=== PATIENT | female | born 1995 | race Caucasian/White ===

== ENCOUNTER 2016-08-03 17:51 | Emergency (ER) | payer OTHER ==
[2016-08-03 17:59] VITALS: TEMP 98.4
[2016-08-03] MEDS ORDERED: TDAP ADULT 0.5 ML INJ (BOOSTRIX) IM ONE ×2 (19:12→20:33)
--- NOTE | 2016-08-03 20:41 | EDPHY ---
H & P Stated Complaint: laceration to R thump on glass at work. HPI/ROS: Chief complaint: Right thumb laceration History of present illness: This is a 20-year-old female who presents to the emergency department for a right thumb laceration. Patient was at work and went to pick something up off the ground and did not see broken glass on the ground which cut her thumb. There is been pain at the site of the laceration. Bleeding which has been controlled with a dressing. She denies paresthesias or abnormal coolness in the thumb. She states she can move it normally. No other injuries reported. Her tetanus is up-to-date. - Personal History LMP (Females 10-55): 1-7 Days Ago Current Tetanus/Diphtheria Vaccine: Unsure Current Tetanus Diphtheria and Acellular Pertussis (TDAP): Unsure - Medical/Surgical History Hx Asthma: No Hx Chronic Respiratory Disease: No Hx Diabetes: No Hx Cardiac Disease: No Hx Renal Disease: No Hx Cirrhosis: No Hx Alcoholism: No Hx HIV/AIDS: No Hx Splenectomy or Spleen Trauma: No Other PMH: PMH- anxiety, depression - Social History Smoking Status: Never smoked - Physical Exam Exam: General: Alert, nontoxic Skin: 1 cm avulsion of the skin to the pad of the thumb. Musculoskeletal: Patient can flex and extend the thumb in the PIP joint and moving it in all sierra of the MCP joint without difficulty. Vascular: Capillary refill brisk in the thumb. Radial pulses 2+. Neurologic: Sensation intact using light touch and two-point discrimination Constitutional: Initial Vital Signs Temperature (C) 36.9 C 08/03/16 17:56 Heart Rate 93 08/03/16 17:56 Respiratory Rate 18 08/03/16 17:56 Blood Pressure 108/71 08/03/16 17:56 O2 Sat (%) 96 08/03/16 17:56 O2 Delivery Mode Room Air Allergies/Adverse Reactions: No Known Allergies Allergy (Verified 08/03/16 17:59) Home Medications: Medication Instructions Recorded Zoloft 25mg (RX) 07/03/15 Medical Decision Making - Diagnostics Imaging: X-ray of the thumb shows some radiopaque foreign bodies. Procedures: Procedure: Laceration repair. Verbal consent was obtained from the patient. The 1 cm avulsion on the pad of the thumb was anesthetized in the usual fashion. The wound was irrigated, draped and explored to its base with a gloved finger. There were no deep structures involved. No tendon injury was identified. The wound was repaired with 5 0 Prolene, 3 simple interrupted sutures to loosely approximate. The wound repair was simple. The procedure was performed by myself. ED Course/Re-evaluation: Patient seen under the supervision of my secondary supervising physician Dr. Nyla Celis. Patient presents to the emergency department for a laceration to her thumb. The thumb is neurovascularly intact. She has good musculoskeletal control of the thumb. This appears to be more of a superficial avulsion than deep laceration. It is cleaned, it is inspected after cleaning and no foreign bodies were appreciated after cleaning. It is loosely approximate. I discussed with the patient the skin is very superficial and will likely fall off and will serve more as a biologic Band-Aid during healing. She is asked to follow-up with worker's compensation or a hand doctor for recheck. Return precautions are given. Patient voiced understanding and agreement with plan. - Data Points Medications Given: Discontinued Medications Diphtheria/Tetanus/Acell Pertussis (Boostrix) 0.5 ml IM .ONCE ONE Stop: 08/03/16 20:34 Last Admin: 08/03/16 20:34 Dose: 0.5 ml Departure - Departure Disposition: Home, Routine, Self-Care Clinical Impression: Thumb laceration Qualifiers: Encounter type: initial encounter Laterality: right Qualified Code(s): S61.011A - Laceration without foreign body of right thumb without damage to nail , initial encounter Condition: Good Instructions: Care For Your Stitches (ED), Laceration (ED), Acute Wounds (ED) Additional Instructions: Follow-up with worker's compensation or a hand doctor for recheck Stitches to be removed in 7 days If symptoms worsen or new symptoms develop return to the emergency room for recheck Referrals: NONE *PRIMARY CARE P,. [Primary Care Provider] - As per Instructions Lucas Garcia MD [Medical Doctor] - As per Instructions
[2016-08-03 21:17] VITALS: BP 107/62; PULSE 78; RESP 16; O2SAT 98
== END 2016-08-03 21:18 | disposition home or self-care (01) ==
PROC: 0HQFXZZ Repair Right Hand Skin, External Approach (ICD-10-PCS; principal; 2016-08-03)
DX: S61.011A Laceration without foreign body of right thumb without damage to nail, initial encounter (principal); Z23 Encounter for immunization; W25.XXXA Contact with sharp glass, initial encounter; Y92.89 Other specified places as the place of occurrence of the external cause; Y99.8 Other external cause status; Y93.89 Activity, other specified